=== PATIENT | female | born 1975 | race Caucasian/White ===

== ENCOUNTER → 2023-02-10 | Outpatient (CLI) | payer OTHER ==
[2023-02-11 15:11] LABS: HPV 16 Negative (Negative); HPV 18 Negative (Negative); HPV OTHER HR TYPES Negative (Negative)
== END ==
LOC: LAB 09:09 → LAB SHORT 09:09
PROVIDERS: Obstetrics & Gynecology
DX: Z87.42 Personal history of other diseases of the female genital tract (principal)
CPT/HCPCS: 87624; G0145

== ENCOUNTER 2023-03-15 08:27 | Day surgery (SDC) | payer OTHER ==
[2023-03-15] VITALS (16 sets, daily range): BP systolic 113–138; BP diastolic 64–87
[~2023-03-15] VITALS: Ht 170.2 cm; Wt 80.9 kg
[2023-03-15] MEDS ORDERED: LAMO100 PO (08:58)
[2023-03-15] MEDS ORDERED: Budeprion Xl300 MG PO (08:58)
--- NOTE | 2023-03-15 09:43 | NUR ---
Ambulatory in Day Surgery. Surgical site prepped with 2% Chlorhexidine cloth wipe. History, Chart, Medications and Allergies reviewed before start of procedure. Lungs clear T/O to Auscultation. Patient confirms NPO status and agrees with scheduled surgery. Pre-Op teaching done. Pt verbalizes understanding. ANDRES AT BEDSIDE.
--- NOTE | 2023-03-15 14:01 | NUR ---
ARRIVAL TO UNIT DROWSY, BUT OPENS EYES APPROP. DENIES N/V. REPORTS PAIN IS TOLERABLE. ASSESSMENT CHARTED. SIPS OF FLUID GIVEN.
[2023-03-15] MEDS ORDERED: ACET500 PO (15:45)
[2023-03-15] MEDS ORDERED: OXYC5 PO (15:46)
[2023-03-15] MEDS ORDERED: IBUP800 PO (15:46)
--- NOTE | 2023-03-15 16:45 | NUR ---
DISCHARGE EATING, DRINKING, & VOIDING. PAIN WELL CONTROLLED. EXCITED FOR DC HOME. ESCORTED OUT VIA WC.
== END 2023-03-15 17:00 | disposition home or self-care (01) ==
LOC: ORSCMMR 08:27 → ORD 10:00 → ORSCMMR 10:00 → SURS 14:05 → ORSCMMR 17:00
PROVIDERS: Obstetrics & Gynecology
PROC: 0UT7FZZ Resection of Bilateral Fallopian Tubes, Via Natural or Artificial Opening With Percutaneous Endoscopic Assistance (ICD-10-PCS; principal; 2023-03-15 10:00)
PROC: 8E0W4CZ Robotic Assisted Procedure of Trunk Region, Percutaneous Endoscopic Approach (ICD-10-PCS; principal; 2023-03-15 10:00)
PROC: 0UT9FZZ Resection of Uterus, Via Natural or Artificial Opening With Percutaneous Endoscopic Assistance (ICD-10-PCS; principal; 2023-03-15 10:00)
DX: N92.6 Irregular menstruation, unspecified (principal); D25.9 Leiomyoma of uterus, unspecified; N93.9 Abnormal uterine and vaginal bleeding, unspecified; N94.6 Dysmenorrhea, unspecified; N80.03 Adenomyosis of the uterus; K66.0 Peritoneal adhesions (postprocedural) (postinfection); Z79.899 Other long term (current) drug therapy
CPT/HCPCS: 58571; S2900; 84702; 86850; 86900; 86901; 88307; A9270; J0690; J1100; J1170; J1885; J2250; J2405; J2704; J3010; J7120